=== PATIENT | female | born 1990 | race Two or more races ===

== ENCOUNTER 2019-11-16 08:13 | Emergency (ER) | payer OTHER ==
[~2019-11-16] VITALS: Ht 167.6 cm; Wt 99.8 kg
--- NOTE | 2019-11-16 08:51 | NUR ---
LABS DRAWN. PT A&OX4, RESP EVEN & UNLABORED, SPEECH CLEAR, SKIN WNL. C/O LUQ PAIN, STARTED AT 0300. Addendum: 11/16/19 at 1326 by LEYLA Amendment undone in EDM - 11/16/19 at 1326 by LEYLA PT NOTIFIED OF NPO STATUS; UNDERSTANDING VERBALIZED.
--- NOTE | 2019-11-16 08:58 | NUR ---
TOOK ERIK. CAPRICE MCMANUS. LAST BM: YESTERDAY. LMP: 10/12/19 LAST ORAL INTAKE: 2099 LAST NOC. Addendum: 11/16/19 at 0858 by LEYLA INTAKE CORRECTION: 0600 ICED COFFEE
[2019-11-16 09:09] LABS: BASOPHILS # (AUTO) 0.04 x10^3/uL (0-0.1); BASOPHILS % (AUTO) 0 % (0-1); EOSINOPHILS # (AUTO) 0.04 x10^3/uL (0-0.4); EOSINOPHILS % (AUTO) 0 % (1-7); LYMPHOCYTES # (AUTO) 1.41 x10^3/uL (1-3.4); LYMPHOCYTES % (AUTO) 14 % (22-44); MD NO; MEAN CORPUSCULAR HEMOGLOBIN 30.6 pg (27.0-34.8); MEAN CORPUSCULAR HGB CONC 33.5 g/dL (32.4-35.8); MEAN CORPUSCULAR VOLUME 91.3 fL (80-100); MEAN PLATELET VOLUME 7.6 fL (7.4-10.4); MONOCYTES % (AUTO) 7 % (2-9); NEUTROPHILS # (AUTO) 7.89 x10^3/uL (1.8-6.8); NEUTROPHILS % (AUTO) 78 % (42-75); PLATELET COUNT 395 x10^3/uL (130-400); RED BLOOD COUNT 4.34 x10^6/uL (3.82-5.3); RED CELL DISTRIBUTION WIDTH 13.6 % (9.6-15.2)
[2019-11-16 09:19] LABS: ALANINE AMINOTRANSFERASE 24 U/L (12-78); ALBUMIN 3.4 g/dL (3.4-5.0); ANION GAP 5 mmol/L (5-15); CALCIUM 8.9 mg/dL (8.5-10.1); CHLORIDE 107 mmol/L (98-107); CREATININE 0.66 mg/dL (0.55-1.02)
[2019-11-16 09:23] LABS: ALKALINE PHOSPHATASE 70 U/L (45-117); BILIRUBIN,TOTAL 0.8 mg/dL (0.2-1.0); TOTAL PROTEIN 8.1 g/dL (6.4-8.2)
--- NOTE | 2019-11-16 09:25 | NUR ---
PT REFUSED OFFER OF PAIN MED AT THIS TIME.
[2019-11-16 09:39] LABS: MICROSCOPIC AUTO
--- NOTE | 2019-11-16 10:42 | NUR ---
PT IN XR
[2019-11-16] MEDS ORDERED: HYDROcodone/APAP 5/325 TABLET ONE (11:40)
--- NOTE | 2019-11-16 11:42 | NUR ---
JOANN GIVEN PER EMAR. PT AWAITING CT. SIDE RAIL UP X1, CALL LIGHT W/IN REACH. BOYFRIEND IN ROOM.
--- NOTE | 2019-11-16 11:58 | NUR ---
PT REPORT TO SANYA HERNANDEZ RN. PT CARE TRANSFERRED.
[2019-11-16] MEDS ORDERED: HYDROcodone/APAP 5/325 TABLET PO ONE (12:00)
--- NOTE | 2019-11-16 13:11 | NUR ---
CT WAS COMPLETED. ERP STILL WAITING FOR REPORT
--- NOTE | 2019-11-16 13:12 | NUR ---
CT REPORT NOW IN CHART.
[2019-11-16 13:24] VITALS: BP 109/74
--- NOTE | 2019-11-16 13:25 | NUR ---
PT REPORTS SOME IMPROVMENT IN PAIN. NOTIFIED PT THAT ERP IS WAITING FOR RETURN CALL FROM UROLOGIST. Addendum: 11/16/19 at 1326 by LEYLA PT NOTIFIED OF NPO STATUS; UNDERSTANDING VERBALIZED.
== END 2019-11-16 14:11 | disposition home or self-care (01) ==
LOC: ED 08:53
DX: N13.2 Hydronephrosis with renal and ureteral calculous obstruction (principal); N39.0 Urinary tract infection, site not specified; R11.0 Nausea; R10.12 Left upper quadrant pain
CPT/HCPCS: 36415; 74021; 74176; 80053; 81001; 83690; 84703; 85025; 87077; 87086; 87186; 99285